=== PATIENT | male | born 1960 | race Caucasian/White ===

== ENCOUNTER 2017-06-02 20:52 | Emergency (ER) | payer OTHER ==
[~2017-06-02] VITALS: Ht 177.8 cm; Wt 86.4 kg
[~2017-06-02 20:52] MED LIST: MELA10TA3 PO; METH750T2 PO; MILK250C2 PO; MOBI15TA PO; MULT-65 PO
[2017-06-02 20:54] VITALS: BP 150/79; PULSE 88; RESP 16; TEMP 98.7; O2SAT 97
[2017-06-02] MEDS ORDERED: MELA5 PO (21:31)
--- NOTE | 2017-06-02 21:42 | RADRPT ---
EXAM DATE/TIME: 06/02/2017 21:05 [place] COMPARISON: No previous studies available for comparison. INDICATIONS : Left sided chest pain for one day. MEDICAL HISTORY : None. SURGICAL HISTORY : Cholecystectomy. ENCOUNTER: Initial ACUITY: 1 day PAIN SCORE: 4/10 LOCATION: Left chest FINDINGS: The lungs are clear without infiltrate, nodule, or mass. There is no appreciable pleural effusion fo r technique. Heart and mediastinum are unremarkable. CONCLUSION: No acute cardiopulmonary disease. Sandro Quiros MD on June 02, 2017 at 21:39 Board Certified Radiologist. This report was verified electronically.
--- NOTE | 2017-06-02 21:43 | PD ---
HPI Chief Complaint: Chest Pain Time Seen by Provider: 21:19 Travel History International Travel<30 days: No Contact w/Intl Traveler<30days: No Traveled to known affect area: No History of Present Illness HPI Patient is a 57-year-old male for the last 7 hours he's had nonstop substernal burning pain does not radiate it is localized around the xiphoid process. He took 2 Gas-X for the pain which helped alleviated temporarily. He has no cardiac history he denies nausea vomiting diarrhea diaphoresis denies cough denies radiation. Patient had a stress test about 3 years ago which was completely normal he has had no cardiac follow-up since then no family history he denies hypertension diabetes cocaine abuse he denies smoking cigarettes he stopped 3 years ago he says. In the ER patient is awake alert no distress the pain does continue again localized burning in the xiphoid process area PFSH Past Medical History Hx Anticoagulant Therapy: No Anxiety: Yes Cardiovascular Problems: No Chemotherapy: No Cerebrovascular Accident: No Diabetes: No Diminished Hearing: No Gastrointestinal Disorders: Yes (GALLSTONES) Hepatitis: Yes (C) Respiratory: No Integumentary: Yes (PSORIASIS) Pneumonia: Yes Thyroid Disease: Yes Tetanus Vaccination: < 5 Years Influenza Vaccination: No Past Surgical History Cholecystectomy: Yes (2008) Other Surgery: Yes (CYST REMOVED FROM THYROID IN ) Social History Alcohol Use: No Tobacco Use: Yes (uses vap cig now) Substance Use: No (DENIES) Allergies-Medications (Allergen,Severity, Reaction): Coded Allergies: No Known Allergies (Verified , 07/28/15) Reported Meds & Prescriptions Reported Meds & Active Scripts Active Pepcid (Famotidine) 20 Mg Tab 20 Mg PO BID Protonix (Pantoprazole Sodium) 40 Mg Tab 40 Mg PO DAILY Reported Melatonin 5 Mg Tab 5 Mg PO HS Review of Systems Except as stated in HPI: all other systems reviewed are Neg Physical Exam Narrative GENERAL: SKIN: Warm and dry. HEAD: Atraumatic. Normocephalic. EYES: Pupils equal and round. No scleral icterus. No injection or drainage. ENT: No nasal bleeding or discharge. Mucous membranes pink and moist. NECK: Trachea midline. No JVD. CARDIOVASCULAR: Regular rate and rhythm. I am unable to reproduce his CP with palpation of the epigasstrum under the strnal area of pain RESPIRATORY: No accessory muscle use. Clear to auscultation. Breath sounds equal bilaterally. GASTROINTESTINAL: Abdomen soft, non-tender, nondistended. Hepatic and splenic margins not palpable. MUSCULOSKELETAL: Extremities without clubbing, cyanosis, or edema. No obvious deformities. NEUROLOGICAL: Awake and alert. No obvious cranial nerve deficits. Motor grossly within normal limits. Five out of 5 muscle strength in the arms and legs. Normal speech. PSYCHIATRIC: Appropriate mood and affect; insight and judgment normal. Data Data Last Documented VS Vital Signs Date Time Temp Pulse Resp B/P (MAP) Pulse Ox O2 Delivery O2 Flow Rate FiO2 06/02/17 23:37 06/02/17 20:54 98.7 88 16 97 Orders Orders Electrocardiogram (06/02/17 20:58) Basic Metabolic Panel (Bmp) (06/02/17 20:58) Ckmb (Isoenzyme) Profile (06/02/17 20:58) Complete Blood Count With Diff (06/02/17 20:58) Magnesium (Mg) (06/02/17 20:58) Prothrombin Time / Inr (Pt) (06/02/17 20:58) Act Partial Throm Time (Ptt) (06/02/17 20:58) Troponin I (06/02/17 20:58) Chest, Pa & Lat (06/02/17 20:58) Aspirin Chew (Aspirin Chew) (06/02/17 21:45) Pantoprazole Inj (Protonix Inj) (06/02/17 21:45) Ondansetron Inj (Zofran Inj) (06/02/17 21:45) CKMB (06/02/17 21:30) CKMB% (06/02/17 21:30) Ed Discharge Order (06/02/17 23:28) Labs Laboratory Tests Test 06/02/17 21:30 White Blood Count 8.9 TH/MM3 Red Blood Count 4.68 MIL/MM3 Hemoglobin 15.4 GM/DL Hematocrit 45.8 % Mean Corpuscular Volume 97.9 FL Mean Corpuscular Hemoglobin 32.9 PG Mean Corpuscular Hemoglobin Concent 33.6 % Red Cell Distribution Width 12.5 % Platelet Count 284 TH/MM3 Mean Platelet Volume 7.2 FL Neutrophils (%) (Auto) 53.4 % Lymphocytes (%) (Auto) 34.9 % Monocytes (%) (Auto) 10.0 % Eosinophils (%) (Auto) 1.3 % Basophils (%) (Auto) 0.4 % Neutrophils # (Auto) 4.7 TH/MM3 Lymphocytes # (Auto) 3.1 TH/MM3 Monocytes # (Auto) 0.9 TH/MM3 Eosinophils # (Auto) 0.1 TH/MM3 Basophils # (Auto) 0.0 TH/MM3 CBC Comment DIFF FINAL Differential Comment Prothrombin Time 9.6 SEC Prothromb Time International Ratio 0.9 RATIO Activated Partial Thromboplast Time 24.7 SEC Blood Urea Nitrogen 21 MG/DL Creatinine 1.14 MG/DL Random Glucose 98 MG/DL Calcium Level 8.6 MG/DL Magnesium Level 2.3 MG/DL Sodium Level 140 MEQ/L Potassium Level 3.7 MEQ/L Chloride Level 104 MEQ/L Carbon Dioxide Level 28.5 MEQ/L Anion Gap 8 MEQ/L Estimat Glomerular Filtration Rate 66 ML/MIN Total Creatine Kinase 115 U/L Creatine Kinase MB 1.0 NG/ML Troponin I LESS THAN 0.02 NG/ML MDM Medical Decision Making Medical Screen Exam Complete: Yes Emergency Medical Condition: Yes Interpretation(s) EKG is normal sinus rhythm Differential Diagnosis Mental includes chest pain of ischemic nature gastritis versus GERD versus osteochondritis versus pneumonia Narrative Course After Protonix patient reports all his pain is resolved and he is safe for discharge with a diagnosis of GERD gastritis prescription for Protonix is given and follow-up as an outpatient Diagnosis Primary Impression: GERD (gastroesophageal reflux disease) Qualified Codes: K21.9 - Gastro-esophageal reflux disease without esophagitis Patient Instructions: Gastritis (ED), General Instructions Scripts Famotidine (Pepcid) 20 Mg Tab 20 MG PO BID, #60 TAB 0 Refills Prov: Cecilio Spear MD 06/02/17 Pantoprazole (Protonix) 40 Mg Tab 40 MG PO DAILY for Reflux, #30 TAB 0 Refills Prov: Cecilio Spear MD 06/02/17 Disposition: 01 DISCHARGE HOME Condition: Good Cecilio Spear MD Jun 02, 2017 21:43
[2017-06-02] MEDS ORDERED: ONDANSETRON HCL 4 MG/2 ML VIAL IV PUSH ONE (21:45)
[2017-06-02] MEDS ORDERED: PANTOPRAZOLE SODIUM 40 MG VIAL IV PUSH ONE (21:45)
[2017-06-02] MEDS ORDERED: ASPIRIN 81 MG CHEW TAB CHEW ONE (21:45)
[2017-06-02 22:07] LABS: AUTOMATED NEUTROPHIL # 4.7 TH/MM3 (1.8-7.7); BASOPHIL % 0.4 % (0.0-2.0); EOSINOPHIL # 0.1 TH/MM3 (0-0.4); EOSINOPHIL % 1.3 % (0.0-4.0); HEMATOCRIT 45.8 % (39.0-51.0); HEMOGLOBIN 15.4 GM/DL (13.0-17.0); LYMPH % 34.9 % (9.0-44.0); LYMPHOCYTE # 3.1 TH/MM3 (1.0-4.8); MEAN CELL VOLUME 97.9 FL (80.0-100.0); MEAN CORPUSCULAR HEMOGLOBIN 32.9 PG (27.0-34.0); MEAN CORPUSCULAR HGB CONC 33.6 % (32.0-36.0); MEAN PLATELET VOLUME 7.2 FL (7.0-11.0); MONOCYTE # 0.9 TH/MM3 (0-0.9); NEUT % 53.4 % (16.0-70.0); PLATELET COUNT 284 TH/MM3 (150-450); RED BLOOD COUNT 4.68 MIL/MM3 (4.50-5.90); RED CELL DISTRIBUTION WIDTH 12.5 % (11.6-17.2); WHITE BLOOD COUNT 8.9 TH/MM3 (4.0-11.0)
[2017-06-02 22:15] LABS: INTERNATIONAL NORMALIZED RATIO 0.9 RATIO; PROTHROMBIN TIME - PATIENT 9.6 SEC (9.8-11.6)
[2017-06-02 22:25] LABS: BICARBONATE 28.5 MEQ/L (21.0-32.0); BLOOD UREA NITROGEN 21 MG/DL (7-18); CALCIUM 8.6 MG/DL (8.5-10.1); CHLORIDE 104 MEQ/L (98-107); CREATININE 1.14 MG/DL (0.60-1.30); GLOMERULAR FILTRATION RATE 66 ML/MIN (>89); GLUCOSE,RANDOM 98 MG/DL (74-106); MAGNESIUM 2.3 MG/DL (1.5-2.5); SODIUM (NA) 140 MEQ/L (136-145)
[2017-06-02 22:29] LABS: TROPONIN I LESS THAN 0.02 NG/ML (0.02-0.05)
[2017-06-02] MEDS ORDERED: PROT40TA PO (23:26)
[2017-06-02] MEDS ORDERED: FAMO1TAB37 PO (23:28)
--- NOTE | 2017-06-04 23:31 | EKG ---
Date Performed: 06/02/2017 Time Performed: 21:20:40 PTAGE: 57 years EKG: Sinus rhythm INCOMPLETE RIGHT BUNDLE BRANCH BLOCK LEFT ANTERIOR FASCICULAR BLOCK ABNORMAL ECG PREVIOUS TRACING : 05/21/2014 13.48 DOCTOR: Annabelle Estrada Interpretating Date/Time 06/04/2017 23:30:14
== END 2017-06-02 23:41 | disposition home or self-care (01) ==
LOC: NEPC 20:52
DX: K21.9 Gastro-esophageal reflux disease without esophagitis (principal); F41.9 Anxiety disorder, unspecified; L40.9 Psoriasis, unspecified; R94.31 Abnormal electrocardiogram [ECG] [EKG]; Z72.0 Tobacco use
CPT/HCPCS: 71046; 80048; 82550; 82552; 83735; 84484; 85025; 85610; 85730; 93005; 96374; 96375; 99285; C9113; J2405

== ENCOUNTER 2017-08-31 17:32 | Emergency (ER) | payer OTHER ==
[~2017-08-31] VITALS: Ht 180.3 cm; Wt 90.9 kg
[~2017-08-31 17:32] MED LIST changes: +FAMO1TAB37 PO; -MELA10TA3 PO; +MELA5 PO; -METH750T2 PO; -MILK250C2 PO; -MOBI15TA PO; -MULT-65 PO; +PROT40TA PO
[2017-08-31 18:00] VITALS: BP 147/68; PULSE 83; RESP 18; TEMP 98.8; O2SAT 97
[2017-08-31] MEDS ORDERED: SUBO8MIS SL (18:26)
[2017-08-31] MEDS ORDERED: BACT800T5 PO (19:12)
--- NOTE | 2017-08-31 19:12 | PD ---
HPI Chief Complaint: ENT Complaint Time Seen by Provider: 18:55 Travel History International Travel<30 days: No Contact w/Intl Traveler<30days: No Traveled to known affect area: No History of Present Illness HPI 57-year-old male presents to the emergency department with complaint of a sore throat that became worse this morning and headache 3 days. Denies lump in throat, difficulty swallowing, unusual drooling. Denies fever, vomiting. Denies nasal congestion, cough, ear pain. No others with similar symptoms. Has not taken any medications or try any treatments to alleviate his symptoms. Rates pain 6/10. Worse with swallowing. Better without swallowing. Primary care provider is Dr. Gibbs. No known allergies. Denies significant past medical history. Has no other medical complaints. No other modifying factors or associated signs and symptoms. PFSH Past Medical History Hx Anticoagulant Therapy: No Anxiety: Yes Cardiovascular Problems: No Chemotherapy: No Cerebrovascular Accident: No Diabetes: No Diminished Hearing: No Gastrointestinal Disorders: Yes (GALLSTONES) Hepatitis: Yes (C) Respiratory: No Integumentary: Yes (PSORIASIS) Pneumonia: Yes Thyroid Disease: Yes Tetanus Vaccination: < 5 Years Past Surgical History Cholecystectomy: Yes (2008) Other Surgery: Yes (CYST REMOVED FROM THYROID IN ) Social History Alcohol Use: No Tobacco Use: Yes (uses vap cig now) Substance Use: No Allergies-Medications (Allergen,Severity, Reaction): Coded Allergies: No Known Allergies (Verified Adverse Reaction, Unknown, 08/31/17) Reported Meds & Prescriptions Reported Meds & Active Scripts Active Review of Systems Except as stated in HPI: all other systems reviewed are Neg Physical Exam Narrative GENERAL: Well-nourished, well-developed male patient, in no acute distress SKIN: Warm and dry. No rash. HEAD: Atraumatic. Normocephalic. EYES: Pupils equal and round at 3 mm with brisk reaction. No scleral icterus. No injection or drainage. PERRLA. ENT: Mucosa pink and dry. Pharynx with 1+ tonsils; with erythema; without exudate, and edema. No uvular edema. No uvular, palatal, or tonsillar deviation. Airway patent. EARS: Bilateral pinnae and external canals appear within normal limits. Bilateral tympanic membranes without erythema, dullness or perforation.. NECK: Trachea midline. Anterior cervical lymphadenopathy and tenderness. CARDIOVASCULAR: Regular rate. RESPIRATORY: No accessory muscle use. GASTROINTESTINAL: Rounded. MUSCULOSKELETAL: No obvious deformities. No clubbing. No cyanosis. No edema. NEUROLOGICAL: Awake and alert. Oriented 3. No obvious cranial nerve deficits. Motor grossly within normal limits. Normal speech. Moves all extremities. PSYCHIATRIC: Appropriate mood and affect; insight and judgment normal. Data Data Last Documented VS Vital Signs Date Time Temp Pulse Resp B/P (MAP) Pulse Ox O2 Delivery O2 Flow Rate FiO2 08/31/17 18:00 98.8 83 18 147/68 (94) 97 Orders Orders Group A Rapid Strep Screen (08/31/17 19:20) Strep Culture (Group A) (08/31/17 19:20) MDM Medical Decision Making Medical Screen Exam Complete: Yes Emergency Medical Condition: Yes Medical Record Reviewed: Yes Differential Diagnosis Strep pharyngitis, viral pharyngitis, sore throat, tonsillitis, less likely peritonsillar abscess Narrative Course 57-year-old male with sore throat and headache 3 days. Patient is afebrile and nontoxic-appearing. Denies fever, vomiting. Rapid strep ordered. I offered the patient pain medication and he declined. 0826: Rapid strep negative. Discussed viral illness and symptom management. Patient is requesting a prescription for antibiotics. Amoxicillin, ibuprofen prescribed for home. Instructed patient to follow up with primary care provider. Patient verbalizes understanding and agreement with treatment plan. Patient is medically cleared and stable for discharge. Discussed reasons to return to the emergency department. Patient agrees with treatment plan. The patients vital signs are stable and the patient is stable for outpatient follow- up and treatment. Patient discharged home, stable and in no acute distress. Diagnosis Primary Impression: Pharyngitis Qualified Codes: J02.9 - Acute pharyngitis, unspecified Referrals: [facility] Primary Care Physician Patient Instructions: General Instructions, Pharyngitis (ED) Departure Forms: Tests/Procedures, Work Release Enter return to work date: Sep 02, 2017 Additional Instructions: Take Antibiotics as prescribed and complete full course of antibiotics Throw away and change your toothbrush 24 hours after starting antibiotics Get plenty of sleep/rest Rest your voice Drink plenty of fluids to prevent dehydration Use warm saltwater gargles to soothe throat pain Use an air humidifier/turn off ceiling fans Use throat lozenges as needed for sore throat Use ibuprofen or acetaminophen as needed to relieve pain and fever Follow-up with your primary care provider within 2-4 days Return immediately to the emergency department with worsening of symptoms Med/Other Pt SpecificInfo: Prescription(s) given Scripts Dtpnqbhiwgtjfuv-Sdyhixasc-Iwn-Alum-Simeth Liq (Magic Mouthwash Pediatric/Adult Liq) 60 Ml Susp 5 ML SWISH-SWAL Q3HR Y for SORE THROAT, #60 ML 0 Refills Each 5mL contains: Diphenydramine 4.5mg, Viscous Lidocaine 2% 10mg, Maalox Advanced Regular Strength 2.7ml Prov: Corrie Ayala 08/31/17 Ibuprofen (Ibuprofen) 800 Mg Tab 800 MG PO Q6HR Y for PAIN, #30 TAB 0 Refills Prov: Corrie Ayala 08/31/17 Amoxicillin (Amoxicillin) 500 Mg Cap 500 MG PO BID for Infection for 10 Days, #20 CAP 0 Refills Prov: Corrie Ayala 08/31/17 Disposition: 01 DISCHARGE HOME Condition: Stable Corrie Ayala Aug 31, 2017 19:12
[2017-08-31] MEDS ORDERED: IBUP1TAB7 PO (20:29)
[2017-08-31] MEDS ORDERED: AMOX500C PO (20:29)
[2017-08-31] MEDS ORDERED: MAGICPED SWISH-SWAL (20:29)
== END 2017-08-31 20:48 | disposition home or self-care (01) ==
LOC: NEPK 17:32
DX: J02.9 Acute pharyngitis, unspecified (principal); B95.1 Streptococcus, group B, as the cause of diseases classified elsewhere; R51 Headache; F41.9 Anxiety disorder, unspecified; F17.290 Nicotine dependence, other tobacco product, uncomplicated; Z86.19 Personal history of other infectious and parasitic diseases
CPT/HCPCS: 86403; 87081; 87880; 99283

== ENCOUNTER 2017-11-01 11:49 | Emergency (ER) | payer OTHER ==
[~2017-11-01] VITALS: Ht 180.3 cm; Wt 90.0 kg
[~2017-11-01 11:49] MED LIST changes: +AMOX500C PO; -FAMO1TAB37 PO; +IBUP1TAB7 PO; +MAGICPED SWISH-SWAL; -MELA5 PO; -PROT40TA PO
[2017-11-01 12:42] VITALS: BP 138/73; PULSE 71; RESP 18; TEMP 98.5; O2SAT 97
[2017-11-01 13:26] LABS: AUTOMATED NEUTROPHIL # 4.3 TH/MM3 (1.8-7.7); BASOPHIL % 0.5 % (0.0-2.0); EOSINOPHIL # 0.1 TH/MM3 (0-0.4); EOSINOPHIL % 1.2 % (0.0-4.0); HEMATOCRIT 47.9 % (39.0-51.0); HEMOGLOBIN 16.3 GM/DL (13.0-17.0); LYMPH % 32.2 % (9.0-44.0); LYMPHOCYTE # 2.4 TH/MM3 (1.0-4.8); MEAN CELL VOLUME 96.8 FL (80.0-100.0); MEAN CORPUSCULAR HEMOGLOBIN 33.1 PG (27.0-34.0); MEAN CORPUSCULAR HGB CONC 34.2 % (32.0-36.0); MEAN PLATELET VOLUME 7.2 FL (7.0-11.0); MONO % 8.9 % (0.0-8.0); MONOCYTE # 0.7 TH/MM3 (0-0.9); NEUT % 57.2 % (16.0-70.0); PLATELET COUNT 275 TH/MM3 (150-450); RED BLOOD COUNT 4.94 MIL/MM3 (4.50-5.90); RED CELL DISTRIBUTION WIDTH 12.5 % (11.6-17.2); WHITE BLOOD COUNT 7.5 TH/MM3 (4.0-11.0)
[2017-11-01 13:36] LABS: ALT (GPT) 19 U/L (12-78); AST (GOT) 14 U/L (15-37); BICARBONATE 23.4 MEQ/L (21.0-32.0); BLOOD UREA NITROGEN 16 MG/DL (7-18); CALCIUM 8.6 MG/DL (8.5-10.1); CHLORIDE 106 MEQ/L (98-107); CREATININE 0.92 MG/DL (0.60-1.30); GLOMERULAR FILTRATION RATE 84 ML/MIN (>89); GLUCOSE,RANDOM 90 MG/DL (74-106); SODIUM (NA) 139 MEQ/L (136-145)
[2017-11-01 13:40] LABS: ALKALINE PHOSPHATASE 73 U/L (45-117); TOTAL PROTEIN 7.5 GM/DL (6.4-8.2); TROPONIN I LESS THAN 0.02 NG/ML (0.02-0.05)
[2017-11-01 13:42] LABS: PROTHROMBIN TIME - PATIENT 9.8 SEC (9.8-11.6)
--- NOTE | 2017-11-01 13:49 | RADRPT ---
EXAM DATE: 11/01/2017 1:44 PM EDT AGE/SEX: 57 years / Male INDICATIONS: Chest pain. Patient complains of difficulty breathing, heaviness in chest, and whistlin g sound on expiration. CLINICAL DATA: This is the patient's initial encounter. Patient reports that signs and symptoms have been present for 1 day and indicates a pain score of 0/10. MEDICAL/SURGICAL HISTORY: None. None. COMPARISON: [facility] [place] [place] & LAT, 06/02/2017. . FINDINGS: PA and lateral views of the chest demonstrate left basilar atelectasis/scarring with blunting of the costophrenic angle characteristic of pleural parenchymal scarring. Lungs are otherwise clear. Heart s ize is normal. Azygos fissure in the medial aspect of the right upper lobe. CONCLUSION: Left basilar atelectasis/scarring. Electronically signed by: Carter Costello MD 11/01/2017 1:48 PM EDT
[2017-11-01] MEDS ORDERED: ACETAMINOPHEN 325 MG TAB PO ONE (16:30)
[2017-11-01 17:05] LABS: TROPONIN I LESS THAN 0.02 NG/ML (0.02-0.05)
--- NOTE | 2017-11-01 17:33 | PD ---
HPI Chief Complaint: Respiratory Distress Time Seen by Provider: 15:43 Travel History International Travel<30 days: No Contact w/Intl Traveler<30days: No Traveled to known affect area: No History of Present Illness HPI Patient presents to the emergency department with a two-week history of intermittent dry cough, shortness of breath, headache, and chest pain. He denies lower extremity edema, recent travel, no known sick contacts. Saw his PCP approximately 1 week ago was given an inhaler for COPD but states that it made him depressed and anxious. Chest pain is described as being present constantly for 1 week, feels like burning or pressure-like, E cigarettes makes it worse, no alleviating factors, radiates to the back. Patient states he has a history of pneumonia and believes that the symptoms are consistent with pneumonia. PFSH Past Medical History Hx Anticoagulant Therapy: No Anxiety: Yes Cardiovascular Problems: No Chemotherapy: No Cerebrovascular Accident: No Diabetes: No Diminished Hearing: No Gastrointestinal Disorders: Yes (GALLSTONES) Hepatitis: Yes (C) Respiratory: No Integumentary: Yes (PSORIASIS) Pneumonia: Yes Thyroid Disease: Yes Past Surgical History Cholecystectomy: Yes (2008) Other Surgery: Yes (CYST REMOVED FROM THYROID IN ) Social History Alcohol Use: No Tobacco Use: Yes (uses vap cig now) Substance Use: No Allergies-Medications (Allergen,Severity, Reaction): Coded Allergies: No Known Allergies (Verified Adverse Reaction, Unknown, 08/31/17) Reported Meds & Prescriptions Reported Meds & Active Scripts Active Levaquin (Levofloxacin) 750 Mg Tablet 750 Mg PO DAILY 5 Days Magic Mouthwash Pediatric/Adult Liq (Lidocaine/Diphenhydr/Alum/Mg/Simeth) 60 Ml Susp 5 Ml SWISH-SWAL Q3HR PRN Each 5mL contains: Diphenydramine 4.5mg, Viscous Lidocaine 2% 10mg, Maalox Advanced Regular Strength 2.7ml Ibuprofen 800 Mg Tab 800 Mg PO Q6HR PRN Amoxicillin 500 Mg Cap 500 Mg PO BID 10 Days Review of Systems Except as stated in HPI: all other systems reviewed are Neg Physical Exam Narrative GENERAL: No acute distress. SKIN: Focused skin assessment warm/dry. HEAD: Atraumatic. Normocephalic. EYES: Pupils equal and round. No scleral icterus. No injection or drainage. ENT: No nasal bleeding or discharge. Mucous membranes pink and moist. NECK: Trachea midline. No JVD. CARDIOVASCULAR: Regular rate and rhythm. No murmur appreciated. RESPIRATORY: No accessory muscle use. Clear to auscultation. Breath sounds equal bilaterally. GASTROINTESTINAL: Abdomen soft, non-tender, nondistended. Hepatic and splenic margins not palpable. MUSCULOSKELETAL: No obvious deformities. No clubbing. No cyanosis. No edema. NEUROLOGICAL: Awake and alert. No obvious cranial nerve deficits. Motor grossly within normal limits. Normal speech. PSYCHIATRIC: Appropriate mood and affect; insight and judgment normal. Data Data Last Documented VS Vital Signs Date Time Temp Pulse Resp B/P (MAP) Pulse Ox O2 Delivery O2 Flow Rate FiO2 11/01/17 15:39 71 96 Room Air 11/01/17 12:42 98.5 18 138/73 (94) Orders Orders Electrocardiogram (11/01/17 12:33) Complete Blood Count With Diff (11/01/17 12:33) Ckmb (Isoenzyme) Profile (11/01/17 12:33) Troponin I (11/01/17 12:33) Iv Access Insert/Monitor (11/01/17 12:33) Ecg Monitoring (11/01/17 12:33) Oxygen Administration (11/01/17 12:33) Oximetry (11/01/17 12:33) Comprehensive Metabolic Panel (11/01/17 12:33) Chest, Pa & Lat (11/01/17 ) Act Partial Throm Time (Ptt) (11/01/17 12:33) Prothrombin Time / Inr (Pt) (11/01/17 12:33) CKMB (11/01/17 12:56) CKMB% (11/01/17 12:56) Ckmb (Isoenzyme) Profile (11/01/17 16:20) Troponin I (11/01/17 16:20) Acetaminophen (Tylenol) (11/01/17 16:30) CKMB (11/01/17 16:30) CKMB% (11/01/17 16:30) Labs Laboratory Tests Test 11/01/17 12:56 11/01/17 16:30 White Blood Count 7.5 TH/MM3 Red Blood Count 4.94 MIL/MM3 Hemoglobin 16.3 GM/DL Hematocrit 47.9 % Mean Corpuscular Volume 96.8 FL Mean Corpuscular Hemoglobin 33.1 PG Mean Corpuscular Hemoglobin Concent 34.2 % Red Cell Distribution Width 12.5 % Platelet Count 275 TH/MM3 Mean Platelet Volume 7.2 FL Neutrophils (%) (Auto) 57.2 % Lymphocytes (%) (Auto) 32.2 % Monocytes (%) (Auto) 8.9 % Eosinophils (%) (Auto) 1.2 % Basophils (%) (Auto) 0.5 % Neutrophils # (Auto) 4.3 TH/MM3 Lymphocytes # (Auto) 2.4 TH/MM3 Monocytes # (Auto) 0.7 TH/MM3 Eosinophils # (Auto) 0.1 TH/MM3 Basophils # (Auto) 0.0 TH/MM3 CBC Comment DIFF FINAL Differential Comment Prothrombin Time 9.8 SEC Prothromb Time International Ratio 1.0 RATIO Activated Partial Thromboplast Time 25.2 SEC Blood Urea Nitrogen 16 MG/DL Creatinine 0.92 MG/DL Random Glucose 90 MG/DL Total Protein 7.5 GM/DL Albumin 4.0 GM/DL Calcium Level 8.6 MG/DL Alkaline Phosphatase 73 U/L Aspartate Amino Transf (AST/SGOT) 14 U/L Alanine Aminotransferase (ALT/SGPT) 19 U/L Total Bilirubin 1.0 MG/DL Sodium Level 139 MEQ/L Potassium Level 4.0 MEQ/L Chloride Level 106 MEQ/L Carbon Dioxide Level 23.4 MEQ/L Anion Gap 10 MEQ/L Estimat Glomerular Filtration Rate 84 ML/MIN Total Creatine Kinase 115 U/L 110 U/L Creatine Kinase MB 1.0 NG/ML 1.1 NG/ML Troponin I LESS THAN 0.02 NG/ML LESS THAN 0.02 NG/ML MDM Medical Decision Making Medical Screen Exam Complete: Yes Emergency Medical Condition: Yes Interpretation(s) ECG: Sinus rhythm, left axis deviation, complete right bundle branch block and T -wave inversion in V1 Labs: Cardiac enzymes negative 2 sets, remaining labs normal Last Impressions Chest X-Ray 11/01/17 0000 Signed Impressions: CONCLUSION: Left basilar atelectasis/scarring. Differential Diagnosis Pneumonia, bronchitis, ACS, PE, viral illness Narrative Course Patient presents to the emergency department complaining of intermittent 2 week history of cough and chest and back pain. By PCP and given an inhaler, which he states did not help. He is afebrile with stable vitals. Patient was placed on a website designer, chest x-ray/EKG/labs were ordered. Believes symptoms likely secondary to bronchitis will DC with [facility]. Levaquin 750 mg p.o. daily 5 days Diagnosis Primary Impression: Bronchitis Patient Instructions: Acute Bronchitis (ED), General Instructions Additional Instructions: 1. Meds as directed. 2. Return to the ER for fever, chest pain, shortness of breath, not improving with antibiotics and inhaler, lower extremity swelling, or for any new/worrisome/worsening symptoms. Med/Other Pt SpecificInfo: Prescription(s) given Scripts Levofloxacin (Levaquin) 750 Mg Tablet 750 MG PO DAILY for Infection for 5 Days, #5 TAB 0 Refills Prov: Cassandra Macias MD 11/01/17 Disposition: 01 DISCHARGE HOME Condition: Stable Cassandra Macias MD Nov 01, 2017 17:33
[2017-11-01] MEDS ORDERED: LEVA750T9 PO (17:34)
[2017-11-01 18:28] VITALS: BP 132/75; O2SAT 96
--- NOTE | 2017-11-02 17:04 | EKG ---
Date Performed: 11/01/2017 Time Performed: 12:49:14 PTAGE: 57 years EKG: Sinus rhythm MARKED LEFT AXIS DEVIATION INCOMPLETE RIGHT BUNDLE BRANCH BLOCK ABNORMAL ECG Since the PREVIOUS TRACING , no significant change noted PREVIOUS TRACIN06/02/2017 21.20 DOCTOR: Carito Jackman Interpretating Date/Time 11/02/2017 17:01:40
== END 2017-11-01 18:32 | disposition home or self-care (01) ==
LOC: NEPC 11:49
DX: J44.9 Chronic obstructive pulmonary disease, unspecified (principal); J20.9 Acute bronchitis, unspecified; F17.290 Nicotine dependence, other tobacco product, uncomplicated
CPT/HCPCS: 71046; 80053; 82550; 82552; 84484; 85025; 85610; 85730; 93005